=== PATIENT | female | born 1955 | race Caucasian/White ===

== ENCOUNTER 2024-03-03 14:13 | Outpatient (CLI) | payer MEDICARE, SELFPAY ==
--- NOTE | 2024-03-03 09:00 | DI.RAD_ITS ---
Exam(s) XR HIP RT COMPLETE AP PELVIS EXAM: XR HIP RT COMPLETE AP PELVIS CLINICAL HISTORY: right hip pain. TECHNIQUE: 2D digital imaging was performed. COMPARISON: CR XR PELVIS (1 OR 2 VIEWS) from 09/19/2023 MR MR HIP RT WO CONTRAST from 10/12/2023 FINDINGS: Two views No evidence of pelvic nor hip fracture. Degenerative changes in the right hip are again noted and ap pears similar to 09/19/2023. Left hip remains unremarkable appearance. IMPRESSION: Degenerative changes right hip unchanged from 09/19/2023 DATA REPOSITORY: RADIATION DOSE DELIVERED:
== END 2024-03-03 14:14 | disposition home or self-care (01) ==
LOC: DIORS 14:15
PROVIDERS: PCP Physician Assistant; Referring Provider Physician Assistant; Visit Provider Physician Assistant
DX: M16.11 Unilateral primary osteoarthritis, right hip; I10 Essential (primary) hypertension
CPT/HCPCS: 99203; 73502

== ENCOUNTER 2024-04-03 03:34 | Outpatient (CLI) | payer MEDICARE, SELFPAY ==
[2024-04-03 11:11] LABS: HCT 43.5 % (36.0-46.0); HGB 14.4 g/dL (11.2-15.7); MCH 31.1 pg (27.0-33.0); MCHC 33.1 % (32.0-36.0); MCV 94 fL (80-95); MPV 9.6 fL (8.0-11.0); Platelet Count 279 10^3/uL (130-400); RBC 4.63 10^6/uL (3.93-5.22); RDW 13.9 % (11.7-14.6); RDW-SD 47.8 fL; WBC 9.54 10^3/uL (4.4-10.8)
[2024-04-03 11:20] LABS: Anion Gap 7.4 mmol/L (3-11); BUN 16 mg/dL (7-18); CO2 27.6 mmol/L (21.0-32.0); CREATININE 0.9 mg/dL (0.55-1.02); Calcium 9.5 mg/dL (8.5-10.1); Chloride 108 mmol/L (98-107); Estimated GFR 70.07 (mL/min/1.73m2); Glucose 112 mg/dL (74-106); Sodium 143 mmol/L (136-145)
== END 2024-04-03 03:35 | disposition home or self-care (01) ==
LOC: LBO 03:35
PROVIDERS: Visit Provider Student in an Organized Health Care Education/Training Program
DX: M16.11 Unilateral primary osteoarthritis, right hip (principal); Z01.818 Encounter for other preprocedural examination
CPT/HCPCS: 36415; 80048; 85027

== ENCOUNTER 2024-04-15 05:56 | Day surgery (SDC) | payer MEDICARE, SELFPAY ==
[2024-04-15] VITALS (38 sets, daily range): BP systolic 97–141; BP diastolic 42–71; PULSE 57–80; RESP 7–16; TEMP 36–36.7; O2SAT 92–100; BMI 31.1
--- NOTE | 2024-04-15 07:02 | W.ANESPRE ---
General Info Date of Service Date Performed: 04/15/24 Height: 5 ft 5 in Weight: 84.9 kg Body Mass Index (BMI): 31.1 Surgical Procedure: Operation Date: 04/15/24 07:50 Proposed Procedure Side Surgeon p Hip Total Hip Anterior Right Damon Kendrick MD Meds Allergies and Home Medications Allergies Allergy/AdvReac Type Severity Reaction Status Date / Time Penicillins Allergy Mild rash Verified 04/15/24 06:21 mold Allergy Unknown Other (See Verified 04/15/24 06:21 Comment) Home Medication ?Medication ?Instructions ?Recorded citalopram 10 mg tablet 10 mg PO HS 01/23/24 citalopram 40 mg tablet 40 mg PO HS 01/23/24 levothyroxine 100 mcg capsule 100 mcg PO HS 01/23/24 methylphenidate HCl 36 mg 36 mg PO DAILY 01/23/24 tablet,extended release 24 hr (Concerta) metoprolol succinate 100 mg 100 mg PO HS 01/23/24 tablet,extended release 24 hr acetaminophen 650 mg 650 mg PO Q12H PRN 04/15/24 tablet,extended release (Tylenol Arthritis Pain) ibuprofen 200 mg tablet (Advil) 200 mg PO Q8H 04/15/24 losartan 25 mg tablet (Cozaar) 25 mg PO DAILY 04/15/24 Current Visit Medications: Current Medications Generic Name Dose Route Start Last Admin Trade Name Freq PRN Reason Stop Dose Admin Acetaminophen 1,000 mg 04/15/24 06:00 Acetaminophen 500 Mg Tab PO 04/15/24 23:59 PREOP YENY Celecoxib 400 mg 04/15/24 06:00 Celecoxib 200 Mg Cap PO 04/15/24 23:59 PREOP YENY Gabapentin 300 mg 04/15/24 06:00 Gabapentin 300 Mg Cap PO 04/15/24 23:59 PREOP YENY Ringer's Solution 1,000 mls @ 80 mls/hr 04/15/24 06:00 IV 04/15/24 23:59 INFUSION YENY Cefazolin Sodium/Dextrose 2 gm in 50 mls @ 100 mls/hr 04/15/24 06:00 Ancef Duplex IVPB 04/15/24 23:59 PREOP YENY Tranexamic Acid/Sodium Chloride 1,000 mg in 100 mls @ 600 mls/hr 04/15/24 06:00 IVPB 04/15/24 23:59 PREOP YENY IV Miscellaneous Supplies 1 each 04/15/24 06:00 Iv Access IV 04/15/24 23:59 DIRECTED YENY Sodium Chloride 0 ml 04/15/24 06:00 Normal Saline Flush 10 Ml Syr IV 04/15/24 23:59 PRN PRN Sodium Chloride 0 ml 04/15/24 06:00 Normal Saline 10 Ml Vial IJ 04/15/24 23:59 DIRECTED PRN Sterile Water 0 ml 04/15/24 06:00 Water,Injection,Sterile 10 Ml Vial IJ 04/15/24 23:59 DIRECTED PRN PFSH Active Problems Active Problems: Problem Status Onset Code Degenerative joint disease of right hip Chronic M16.11 Obesity Chronic E66.9 Moderate recurrent major depression Acute F33.1 Hypertensive disorder Chronic I10 Hypothyroidism Chronic E03.9 Hyperlipidemia Acute E78.5 Medical History Medical History ADHD Surgical History Surgical History History of hysterectomy Tobacco Smoking/Tobacco Use Status: Never Alcohol Alcohol Intake: current Alcohol intake frequency: holidays/special occasions only Alcohol type: hard liquor Substance Use Substance use: Never Substance use type: does not use Details: alcohol: unknown Vital Signs and Lab Results Vital Signs Most Recent Vital Signs in EMR: Most Recent Vital Signs Temp Pulse Resp BP Pulse Ox 36.7 C 57 L 16 113/58 L 98 04/15/24 06:28 04/15/24 06:28 04/15/24 06:28 04/15/24 06:28 04/15/24 06:28 Lab Results Blood Type / Crossmatch: No Data to Display Complete Blood Count: White Blood Count 9.54 10^3/uL (4.4-10.8) 04/03/24 11:05 Red Blood Count 4.63 10^6/uL (3.93-5.22) 04/03/24 11:05 Hemoglobin 14.4 g/dL (11.2-15.7) 04/03/24 11:05 Hematocrit 43.5 % (36.0-46.0) 04/03/24 11:05 Platelet Count 279 10^3/uL (130-400) 04/03/24 11:05 Complete Metabolic Panel: Sodium 143 mmol/L (136-145) 04/03/24 11:05 Potassium 4.0 mmol/L (3.5-5.1) 04/03/24 11:05 Chloride 108 mmol/L (98-107) H 04/03/24 11:05 Carbon Dioxide 27.6 mmol/L (21.0-32.0) 04/03/24 11:05 BUN 16 mg/dL (7-18) 04/03/24 11:05 Creatinine 0.9 mg/dL (0.55-1.02) 04/03/24 11:05 Est GFR (CKD-EPI 2020) 70.07 (mL/min/1.73m2) 04/03/24 11:05 Calcium 9.5 mg/dL (8.5-10.1) 04/03/24 11:05 Glucose 112 mg/dL (74-106) H 04/03/24 11:05 Liver Function Panel: No Data to Display Coagulation Panel: No Data to Display Cardiac Panel: No Data to Display Arterial Blood Gas: No Data to Display Venous Blood Gas: No Data to Display Pancreas Panel: No Data to Display Thyroid Panel: No Data to Display Infectious Disease: No Data to Display Blood Cultures: No Data to Display Toxicology Panel: No Data to Display Anesthesia Assessment and Plan Anesthesia History Personal History: No History of Anesthesia Complications Family History: No Family History of Anesthesia Complications Exercise Tolerance Exercise Tolerance: Metabolic Equivalents>4 Pertinent Negatives Pertinent Negatives: No Symptoms of GERD, No Major Cardiovascular Symptoms or Complaints, No Major Pulmonary Symptoms or Complaints and No History of CVA/TIA Cardiac & Pulmonary Exam Cardiac Exam: Normal S1/S2 Heart Sounds Pulmonary Exam: Clear Bilateral Breath Sounds Implantable Cardiac Device Does patient have a Pacemaker or an ICD?: No Airway Exam Known Difficult Airway: No Mallampati Class: 2 Mouth Opening: Normal (> 3cm) Thyromental Distance: Greater than 3 cm Neck Range of Motion: Full ROM Neck Circumference: Normal Teeth Condition: Normal Dentition ASA Classification ASA Score: ASA 2 Emergency Case?: No NPO Status NPO Status: NPO Clears >2 hours, Solids >8 hours Anesthesia Plan Resuscitation Status: Full Code Anesthesia Technique: Spinal Anesthesia Airway Planned: Natural Airway Monitors Used: Standard Monitors
[2024-04-15] MEDS: Normal Saline 1,000 ML 30 ML IV (07:10)
[2024-04-15] MEDS: Acetaminophen 500 MG TAB 1000 MG PO (07:16)
[2024-04-15] MEDS: Celecoxib 200 MG CAP 400 MG PO (07:16)
--- NOTE | 2024-04-15 07:20 | PDOC.DSDIS_ITS ---
Date of service: 04/15/24 Discharge Plan Disposition Patient Disposition: Home Condition: Good Discharge Details Reason For Visit: Right hip DJD Attending Provider: Damon Kendrick Primary Care Provider: Rosa Davidson Home Meds and New Rx's Prescriptions: New celecoxib [Celebrex] 200 mg capsule 200 mg PO BID PRNQty: 60 0RF Rx Instructions: Take one tablet twice daily for pain and inflammation aspirin 81 mg tablet,delayed release (DR/EC) 81 mg PO BID 30 Days Qty: 60 0RF acetaminophen 500 mg tablet 1,000 mg PO Q8H PRN Qty: 90 0RF Rx Instructions: Take two tablets up to every 8 hours as needed for pain pantoprazole 40 mg tablet,delayed release (DR/EC) 40 mg PO DAILY Qty: 14 0RF dexamethasone 4 mg tablet 4 mg PO DAILY Qty: 2 0RF Rx Instructions: Take one tablet once daily for two days docusate sodium [Colace] 100 mg capsule 100 mg PO BID Qty: 30 0RF oxycodone 5 mg tablet 5 mg PO Q6H PRNQty: 12 0RF Rx Instructions: Take one tablet up to every 6 hours as needed for severe postoperative pain Discontinued acetaminophen [Tylenol Arthritis Pain] 650 mg tablet extended release 650 mg PO Q12H PRN Patient Comments: pt. reports taking 1300 mg ibuprofen [Advil] 200 mg tablet 200 mg PO Q8H Patient Comments: pt. took two tablets No Action citalopram 40 mg tablet 40 mg PO HS citalopram 10 mg tablet 10 mg PO HS Patient Comments: pt usually takes in morning methylphenidate HCl [Concerta] 36 mg tablet extended release 24hr 36 mg PO DAILY levothyroxine 100 mcg capsule 100 mcg PO HS metoprolol succinate 100 mg tablet extended release 24 hr 100 mg PO HS losartan [Cozaar] 25 mg tablet 25 mg PO DAILY Discharge Instructions Additional Instructions: Total Hip Discharge Instructions Activity: The most important activity is to walk. You should try to take short walks a few times a day. You have no restrictions on movement or positioning, but do not try to force what you do. You will find some stiffness and weakness with hip flexion (lifting your knee). Do not try to strengthen this too early, continue to practice walking and stairs and this will come. - Outpatient physical therapy can be helpful to help return you to a normal gait and improve your flexibility and strength. This can start around 2 weeks. For some patients, it?s not necessary. Usually this is determined at the time of discharge or at the first post-operative visit. - You should wear the ZORA hose on both legs for 2 weeks. Dressing: Keep the surgical dressing in place for at least one week. After the first week it may be removed and replace with light gauze and tape or nothing. It may get wet after 3 days but avoid soaking the dressing. If it gets wet, just lightly pat dry. It is important to always keep some gauze between skin folds, especially when you are sitting. Spend some time with the wound exposed when you are lying flat as the incision does wrinkle onto itself. Medications: - You should take Tylenol and an anti-inflammatory Celebrex as your primary pain control medications. If the Celebrex is too expensive or not covered, please call the office for another alternative (Advil/Ibuprofen or Naproxen/Aleve). - You have been prescribed a stronger pain medication Oxycodone for breakthrough pain, take as needed as prescribed. - You have also been prescribed a stomach acid reduction agent Pantoprozole to help reduce stomach acid and reflux. - You have also been prescribed Decadron to help with post-operative nausea and pain. You will take this for two days starting tomorrow. - You will be taking Aspirin 81mg twice a day for DVT prevention unless instructed otherwise. - If you have constipation you should take Colace (which has been prescribed) or Miralax (which is available [id number]). It takes most people 3-4 days to have a bowel movement. Follow-up: 2 weeks If you have any acute concerns or questions, please do not hesitate to contact the office at [phone]. You may contact Dr. Kendrick with any questions after hours through the hospital at [phone] or on his cell phone at [phone]. Referrals: Damon Kendrick MD [ [facility] STAFF PHYSICIAN] - Equipment/Supplies: Walker Activity:: Elevate Remove Dressings/Wound Care:: Do Not Remove Shower/Bathe:: Cover Diet:: As Tolerated Discharge Orders Discharge Orders: Discharge Order (Routine); Ordered 04/15/24 Ordered By: iMle Cross
[2024-04-15] MEDS: ceFAZolin 2 GM/50 ML BAG IVPB (07:39)
--- NOTE | 2024-04-15 07:48 | ROE_ITS ---
Operative Note Operative Note PRE-OP DIAGNOSIS: Right Hip Arthritis POST-OP DIAGNOSIS: same PROCEDURE: Right Anterior Total Hip Arthroplasty with Intraoperative Navigation SURGEON: Damon Kendrick ASSISTANT PROFESSOR OF ENGLISH: Mile Cross ANESTHESIA TYPE: Spinal Refer to Anesthesia Record ESTIMATED BLOOD LOSS: 100 PATHOLOGY: none sent TOURNIQUET TIME: 0 COMPLICATIONS: None Patient was transported to: PACU Patient's condition: stable Implants: 1. Depuy [place] [employer] Acetabular Component, 52mm 2. Depuy Acetabular Liner, [id number] 3. Depuy Actis Standard Collared Femoral Stem, Size 4 4. Depuy Altrx Ceramic Femoral Head, Size 36+1.5mm Indications: I have seen Kd in clinic for symptoms of hip arthritis, confirmed with radiographic findings. She has exhausted nonoperative methods and was having significant limitations in daily function and desired better function and less pain. I discussed the technical details of a hip replacement. I explained the risks of the procedure to include, but not limited to, bleeding, infection, pain, stiffness, fracture, damage to nerves and vessels, damage to muscles and tendons, loosening, instability, leg length inequality, need for repeat procedure, blood clot and cardiopulmonary demise. Despite these risks, she elected to proceed. Findings: There was significant signs of arthritis throughout the hip. Procedure Description: Kd was greeted in the preoperative holding area where the correct side was identified and marked. The consent was reviewed with the patient and signed. The history and physical was updated. All questions were answered. She was taken back to the operating room. A spinal anesthestic was then administered. The feet were wrapped with cast padding and Coban and then placed into the boot liners and then into the boots. Care was taken to protect the skin and make sure the heels were fully down and the boots were stable. The patient was then positioned onto the HANA table. Both legs were held in a neutral position. SCDs were applied. The patient was then slid down onto a peroneal post. Prophylactic antibiotics in the form of Cefazolin were administered. 1g of Tranxemic Acid was given intravenously within 30 minutes of incision. The right leg was then prepped with Chloraprep and draped in a standard fashion. A second prep with Chloraprep was performed prior to placement of a shower-curtain type drape with Iodine impregnated skin protection. A timeout to confirm correct identity, side and site, procedure, allergies, anesthesia, and medical concerns was performed. An obliquely oriented incision was made starting lateral to the ASIS and running distal over the Tensor Fascia Deanna (TFL) muscle belly toward the fibular head, approximately 10cm. The skin and soft tissue was dissected sharply, through Antolin?s fascia, and to the fascia of the TFL. With the fascia and superior border of the IT band identified, the fascia was incised with a new knife just above any perforators from the IT band. The TFL muscle belly was bluntly dissected away from the fascia and moved laterally. The fat between TFL and rectus was identified to ensure the dissection was not within the TFL. Blunt dissection created space between abductors and the capsule and retractor was placed over the lateral femoral neck. The fibers of the rectus femoris tendon were identified and these were freed from the anterior capsule. A second cobra retractor was placed around the medial femoral neck. The TFL was further retracted laterally to show the deep fascia. Careful dissection through this layer identified three main crossing vessels of the lateral femoral circumflex. These were cauterized in multiple locations and then cut without any noticeable bleeding. The TFL was further released bluntly from the deep fascia to expose anterior hip capsule and fat The soft tissue orthopaedic retractor was then placed beneath the TFL and against sartorius and medial soft tissues to protect and retract the soft tissues. A T-capsulotomy was then performed starting at the superior lateral acetabulum and moving distally to the intertrochanteric ridge. These capsular flaps were tagged with a No. 1 Ethibond and elevated from within. The capsular flaps were released to the shoulder of the lateral neck and to the lesser trochanter to give excellent visualization of the proximal femur. A neck osteotomy was performed using an oscillating saw based on preoperative templates. This cut started in the shoulder and of the lateral neck and exited medially. The saw was at all times directed medially to avoid injury to the greater trochanter. Gross traction was applied to the leg and the osteotomy opened. The femoral head was removed with a corkscrew, making sure to protect the TFL on its exit. Traction was released after head removal. This was measured on the back table to determine the starting reamer size. Portions of the rectus obscuring visualization were minimally elevated off the superior acetabulum. An anterior retractor was placed over the anterior wall between capsule and labrum and attached to the Gripper retraction system. The femur was rotated to 90 degrees and medial capsule was fully released until the lesser trochanter was palpable and visible; the femur was returned to 30 degrees. A posterior retractor was placed similarly between capsule and labrum. This provided excellent visualization. The contents of the cotyloid fossa were removed with electrocautery and the labrum was removed with a knife. Acetabular reaming began with a 46mm reamer. This first reaming was directed anterior to posterior and medial to get down to the true floor. This was inspected and reamed until the true floor was reached. The anterior retractor was then released and entry and exit was provided by traction on the capsular flaps. I then reamed sequentially up to a 52mm reamer where good fit was obtained. The larger reamers were oriented based on anatomical reference of the anterior and lateral cervantes to ensure proper abduction and anteversion. Positioning and size was confirmed with the fluoroscopy. A 52mm Depuy [place] [employer] acetabular component was selected. The acetabulum was reamed around the periphery with the selected acetabular size to prevent a rim fit. The deep tissues were irrigated. The acetabular component was then impacted in a position of about 40-45 degrees of abduction and 15-20 degrees of anteversion, using the patient?s anatomy as the ultimate landmark. Fluoroscopy was used to confirm this. There was excellent unscrambler of the acetabular component and the inserting handle was removed. The acetabular liner, Depuy [id number] polyethylene liner, was inserted and lined up with the tines of the acetabular component. There was no soft tissue interposition. The liner was then impacted into position and confirmed to be well-seated. A portion of the caprice-articular cocktail was then injected around the acetabulum into the capsule and periosteum. This cocktail consisted of 123mg of Ropivacaine, 0.25mg of Epinephrine, 0.04mg of Clonidine, and 15mg of Ketorolac, diluted to 50cc. The leg was rotated to 120 degrees. Any remaining medial capsule was released until the lesser trochanter was easily palpable. A retractor was placed medially. The lateral capsule was further released into the shoulder to allow access to the greater trochanter. A Keene retractor was placed over the greater trochanter which allowed the trochanter to flip in front of the capsule for excellent exposure. The leg was brought down into maximal extension and 20 degrees of adduction while ensuring there was no impingement on the acetabulum. Any remnant capsule within the trochanter was released. Piriformis and obturator externis were identified and protected. There was excellent access to the proximal femur. The lateral neck remnant was removed with a rongeur. A blunt canal probe was used to identify the canal and trajectory for later broaching. A box osteotome initiated the broach course. A small curved rasp and a curved curette were used to work laterally. Broaching then began with a starter Actis broach. This was inserted manually around the trochanter and into the canal before mallet blows. The broach was seated to the neck cut level based on the neck cut and the preoperative template. Sequential broaching was continued with the [employer] pneumatic broaching device until a tight fit was obtained with good rotational control of the femur. A trial standard neck was inserted along with a +1.5 trial head. The leg was brought out of extension and adduction and then reduced with traction and internal rotation. The leg was stable anteriorly in a position of 30 degrees of extension and 90 degrees of external rotation. Fluoroscopy was used to ensure there was no fracture and the stem was seated well. Leg lengths were checked with an AP pelvis and pelvic reference points. Hookit navigation system was used to confirm appropriate positioning and leg length and offset. This showed corrected offset with about 5mm of increased leg length, thus the broach was advanced 5mm. Once content with the desired offset and leg lengths, the leg was brought back into extension, external rotation and adduction. The periosteum and surrounding tissue was injected with remaining portion of the caprice-articular cocktail. The proximal femur was irrigated as well as the deep tissues. The Depuy Actis standard collared stem, size 4, was then manually inserted into the proximal femur making sure to control rotation. It was then malleted into position with light blows, giving breaks to allow bone expansion and decrease risk of fracture. The selected Depuy Altrx Ceramic Head, size 36+1.5mm, was then placed onto the clean and dry trunnion and secured with impaction onto the tapered fit. The leg was brought back out of extension and adduction and reduced with traction and internal rotation. Stability was confirmed with no shuck at 90 degrees of external rotation and 30 degrees of extension. No impingement through range of motion arc. Final x-ray images were obtained with fluoroscopy to confirm adequate positioning and no intraoperative fracture. The deep tissues were thoroughly irrigated with Surgiphor, betadine solution. This was allowed to sit in the wound for 3 minutes before being thoroughly irrigated out with normal saline. The capsule was then reapproximated with the previously placed Ethibond sutures. The TFL fascia was finally closed with a No. 2 Stratafix, barbed suture. Deep tissues were then reapproximated with 0 Vicryl and a running 2-0 Vicryl. The skin was closed with a running 4-0 Monocryl in a subcuticular fashion. This was reinforced with skin glue. A Mepilex silver dressing was applied. At the end of the case, all counts were correct. Kd was transferred to the hospital bed without difficulty and suffering no apparent complication. She has a good prognosis. Physical therapy will start today and without restrictions, weight-bearing as tolerated. Aspirin 81mg BID will be used for DVT prophylaxis. Date of Procedure: 04/15/24
[2024-04-15] MEDS: TRANEXAMIC ACID/SOD. CHL. 1,000 MG/100 ML BAG 600 MG IVPB ×2 (07:51→08:17)
--- NOTE | 2024-04-15 07:57 | NUR.NOTE ---
0700: Per MD, gabapentin 300 mg to be DCd.Nursing Note:
--- NOTE | 2024-04-15 09:04 | DI.RAD_ITS ---
Exam(s) XR HIP RT IN OR EXAM: XR HIP RT IN OR CLINICAL HISTORY: Degenerative joint disease of right hip: TECHNIQUE: 2D and realtime digital imaging was performed. CONTRAST MATERIAL: Refer to procedure report. COMPARISON: CR XR PELVIS (1 OR 2 VIEWS) from 09/19/2023 CR XR HIP RT COMPLETE AP PELVIS from 03/03/2024 FINDINGS: Fluoroscopy was provided for [place] during the performance of a right total hip arthroplasty. Plea se refer to the procedure report for complete details. Ka,r=6.74 mGy IMPRESSION: RADIATION DOSE DELIVERED: 0.0 0.0 0
[2024-04-15] MEDS: fentaNYL 100 MCG/2 ML VIAL IVP ×2 (09:24→09:30)
[2024-04-15] MEDS: HYDROmorphone 1 MG/ML SYR IVP (09:39)
[2024-04-15] MEDS: Normal Saline 10 ML VIAL IJ (09:55)
[2024-04-15] MEDS: LORazepam 2 MG/ML VIAL 0.5 MG IVP (09:55)
--- NOTE | 2024-04-15 13:33 | PT.INIE ---
PT Notes Visit Reasons: Right hip DJD Physical Therapy Day Surgery Initial Evaluation Date: 04/15/2024 Referring Doctor: Dr Kendrick PT Orders: PT CONSULT: S/p Ortho surgery Precautions: WBAT, with No restrictions Patient Profile/Admitting Diagnosis: Pt is 69 yo female presenting s/p elective R JULIAN under spinal anesthesia. PMHX:ADHD,hypothyroidism,obesity,HLD,Hypertensive disorder,Anxiety, s/p hysterectomy. Social History/Home Situation:Pt resides with her in single family 1 story home with 3 small steps to enter. Pt reports she has a shelf post that is secured into the wall next to the stairs that she uses if she needs more support. She is independent with ADL, homemaking, meal prep, medication management. She has no bathroom DME but does have a comfort height (taller) toilet. She reports her bed is standard height. She drives . Equipment Owned/DME: FWW ( assessed for appropriate height) Subjective: Pt reports she is nervous about moving but is agreeable to participate so she can go home Objective: General Observation: pt received in semireclined position with ice to right lateral hip and IV access to LUE, present. Mental Status: A+O x 4, flat quiet affect. Pain: right hip 3-10 ROM: Right Upper Extremity: WNL Left Upper Extremity: WNL Right Lower Extremity: hip flexion 90 degrees, hip abduction 12 degrees, knee flexion 92 degrees, ankle DF 5 degrees Left Lower Extremity: WNL except DF 5 degrees Strength: Right Upper Extremity: 5/5 Left Upper Extremity: 5/5 Right Lower Extremity: Hip flexion: 3- /5; hip abduction: 3- /5; hip extension: 3-/5; knee extension: 3 /5; knee flexion: 3- /5 ankle DF: 3/5 ; ankle PF: 3 /5 Left Lower Extremity: Hip flexion: 4 /5; hip abduction: 4 /5; hip extension:4 /5; knee extension: 4 /5; knee flexion: 4 /5 ankle DF: 4/5 ; ankle PF: 4/5 Sensation: intact BLE Bed Mobility/Transfers: Supine to sit supervision Sit to supine: min A to get RLE into bed Sit to stand supervision Stand to sit supervision Bed to chair supervision with FWW Gait: ambulates with FWW SBA with 3 point step to pattern initially then able to progress to reciprocal pattern with diminished step length. Stairs: 3 steps with simulated post on the left ascending and [employer] step to pattern CGA for first step then pt utilized FWW to ascend remaining 2 steps simulating stepping into home. Pt descending 3 steps with simulated post on righ side and [employer]/CGA for first step then utilizing FWW to descend the remaining 2 steps. Balance: Static Sitting: Normal Dynamic Sitting: good Static Standing: Good Dynamic Standing: Fair + Special Tests: Mobility Limitations Standardized Measure [facility] AM-PAC 6 clicks Basic Mobility Inpatient Short Form: Raw Score: 21 CMS Score: 28.97% Informed Consent/Education: Patient instructed in purpose of PT consult. Packet containing JULIAN exercise protocol has been given to patient. Education and training on initial set of exercises that can be done at home have been completed with patient. participated in stair training and able to provide appropriate cueing for sequencing and [employer]. reports he can install a railing on the steps to provide increased stability for [place] to safely enter and exit home without physical assistance. Assessment: Patient presents with clinical signs and symptoms consistent with current/admitting diagnoses that have resulted to mobility limitations, gait instability, generalized weakness, and impairment of motor control as demonstrated by the following impairment level findings: 1. Decreased strength to right LE major muscle groups 2. Impaired standing balance 3. Limitation of joint range of motion in right hip 4. Pain RLE 5. impaired activity tolerance Impairments are contributing to the following functional limitations: 1. Inability to safely ambulate without assistive device 2. Increase completion time for mobility ADL performance 3. Increased fall risk 4. Decline in bed mobility skills 5. decline in ability to perform stairs without physical assistance Patient is assessed as a moderate complexity based on the following: History: 69-year-old female with impairment level findings, functional limitations, and past medical history as indicated above Examination: Demonstrable impairment in strength, balance, and mobility level with underlying impairments and functional limitations as documented above Presentation: evolving Decision Making: moderate Goals: N/A. Plan of Care/Treatment Plan: N/A. DISCHARGE RECOMMENDATIONS: Home with HEP as instructed TREATMENT CODE/TIME:54892, [id number] / [id number] Thank you for the opportunity to participate in the care of this patient. Angelica Chase, PT [facility] Please sign an return this page within 30 days if you agree with the above POC. Thank you! Physician Signature Date [facility]
--- NOTE | 2024-04-15 13:42 | W.ANESPOSTOP ---
Postoperative Evaluation Date, Time and Location Date Performed: 04/15/24 Time Performed: 13:42 Patient Location: Day Surgery Unit Vital Signs Most Recent Imported Vital Signs: Most Recent Vital Signs Temp Pulse Resp BP Pulse Ox 36.3 C L 78 13 114/53 L 93 04/15/24 12:10 04/15/24 12:10 04/15/24 12:10 04/15/24 12:10 04/15/24 12:10 Pain Score Most Recent Pain Score: Most Recent Pain Score Pain Level 3 04/15/24 12:10 Assessment Mental Status: Awake (Alert & Oriented to Patient Baseline) Airway and Respiratory Function: Patent airway with normal (patient baseline) respiratory exam Cardiovascular Function: Hemodynamically Stable Hydration Status: Adequately Hydrated Nausea & Vomiting: No Nausea or Vomiting Pain: Pain is tolerable per patient Peripheral Nerve Block: Patient did not receive a nerve block
== END 2024-04-15 13:53 | disposition home or self-care (01) ==
PROVIDERS: PCP Physician Assistant; Visit Provider Student in an Organized Health Care Education/Training Program
PROC: (CPT 27130; principal; 2024-04-15 07:30)
DX: M16.11 Unilateral primary osteoarthritis, right hip (principal); E66.9 Obesity, unspecified; E78.5 Hyperlipidemia, unspecified; I10 Essential (primary) hypertension; E03.9 Hypothyroidism, unspecified
CPT/HCPCS: 20985; 27130; 97162; 97530; 73501; C1776; J0690; J1100; J1171; J2003; J2060; J2250; J2401; J2405; J2704; J3010

== ENCOUNTER 2024-04-28 15:13 | Outpatient (CLI) | payer MEDICARE, SELFPAY ==
--- NOTE | 2024-04-28 10:30 | DI.RAD_ITS ---
Exam(s) XR HIP RT COMPLETE AP PELVIS EXAM: XR HIP RT COMPLETE AP PELVIS CLINICAL HISTORY: 1ST POST OP R JULIAN. TECHNIQUE: 2D digital imaging was performed. Two images were obtained. AP pelvis and lateral hip vi ews were obtained. COMPARISON: CR XR HIP RT COMPLETE AP PELVIS from 03/03/2024 XA XR HIP RT IN OR from 04/15/2024 FINDINGS: BONES: There are stable post operative changes of a right total hip arthroplasty present. No fractur e or dislocation. JOINTS: The orthopedic hardware is in good position. No evidence of hardware loosening. SOFT TISSUE: Normal. IMPRESSION: Stable right total hip arthroplasty. DATA REPOSITORY: RADIATION DOSE DELIVERED:
== END 2024-04-28 15:14 | disposition home or self-care (01) ==
LOC: DIORS 15:13
PROVIDERS: PCP Physician Assistant; Referring Provider Physician Assistant; Visit Provider Student in an Organized Health Care Education/Training Program
DX: Z96.641 Presence of right artificial hip joint (principal); Z47.1 Aftercare following joint replacement surgery
CPT/HCPCS: 99024; 73502

== ENCOUNTER → 2024-05-26 10:22 | Outpatient (BNVA) | payer MEDICARE, SELFPAY | PROVIDERS: PCP Physician Assistant; Referring Provider Physician Assistant | DX: Z47.1 Aftercare following joint replacement surgery (principal); M76.31 Iliotibial band syndrome, right leg; Z96.641 Presence of right artificial hip joint | CPT/HCPCS: 99024 ==

== ENCOUNTER → 2024-07-07 10:34 | Outpatient (BNVA) | payer MEDICARE, SELFPAY | PROVIDERS: PCP Physician Assistant; Referring Provider Physician Assistant | DX: Z47.1 Aftercare following joint replacement surgery (principal); M76.31 Iliotibial band syndrome, right leg; Z96.641 Presence of right artificial hip joint | CPT/HCPCS: 99024 ==

== ENCOUNTER → 2024-09-04 08:23 | Outpatient (BNVA) | payer MEDICARE, SELFPAY | PROVIDERS: PCP Physician Assistant; Referring Provider Physician Assistant | DX: Z47.1 Aftercare following joint replacement surgery (principal); Z96.641 Presence of right artificial hip joint | CPT/HCPCS: 99213 ==

== ENCOUNTER 2025-04-16 14:30 | Outpatient (CLI) | payer MEDICARE, SELFPAY ==
--- NOTE | 2025-04-16 08:45 | DI.RAD_ITS ---
Exam(s) XR HIP RT AP LAT ONLY EXAM: XR HIP RT AP LAT ONLY CLINICAL HISTORY: ANNUAL F/U. TECHNIQUE: 2D digital imaging was performed. COMPARISON: CR XR HIP RT COMPLETE AP PELVIS from 04/28/2024 FINDINGS: Two views Stable position alignment of the components of the right hip prosthesis. No fracture or loosening evident. IMPRESSION: Stable satisfactory appearance of right hip prosthesis components. DATA REPOSITORY: RADIATION DOSE DELIVERED:
== END 2025-04-16 14:31 | disposition home or self-care (01) ==
LOC: DIORS 14:30
PROVIDERS: PCP Physician Assistant; Referring Provider Physician Assistant; Visit Provider Physician Assistant
DX: Z47.1 Aftercare following joint replacement surgery (principal); Z96.641 Presence of right artificial hip joint; M76.891 Other specified enthesopathies of right lower limb, excluding foot
CPT/HCPCS: 99213; 73502